=== PATIENT | male | born 1945 | race African-American/Black ===

== ENCOUNTER 2019-08-02 15:13 | Inpatient (IN) | payer MEDICARE, MEDICAID ==
[~2019-08-02] VITALS: Ht 185.4 cm; Wt 81.6 kg
[2019-08-02] MEDS ORDERED: MORPHINE SULFATE 4 MG/ML CPJ (NOT FOR IM USE) IV STA ×2 (15:37→18:18)
[2019-08-02] MEDS ORDERED: ONDANSETRON HCL 4MG/2ML INJ IV STA ×2 (15:37→18:18)
[2019-08-02 17:06] LABS: BASOPHILS % 0.6 % (0.0-2.0); EOSINOPHILS % 1.4 % (0.0-5.0); HEMATOCRIT. 41.6 % (42.0-52.0); HEMOGLOBIN. 13.9 g/dL (14.0-18.0); LYMPHOCYTES % 19.9 % (20.0-50.0); MEAN CORPUSCULAR HEMOGLOBIN 31.3 pg (28.0-32.0); MEAN CORPUSCULAR VOLUME 93.9 fL (80.0-94.0); MONOCYTES % 6.5 % (2.0-8.0); NEUTROPHILS % 71.6 % (40.0-76.0); RED BLOOD CELL COUNT 4.43 mill/uL (4.7-6.1); RED CELL DISTRIBUTION WIDTH 15.4 % (11.6-14.6)
[2019-08-02 17:09] LABS: CHLORIDE 107 mEq/L (98-107)
[2019-08-02 17:18] LABS: CREATINE KINASE 600 IU/L (39-308)
[2019-08-02 17:37] LABS: MEAN PLATELET VOLUME 9.7 fl (7.4-10.4); PLATELET 226 x1000/uL (130-400); PLATELET ESTIMATE NORMAL
[2019-08-02] MEDS ORDERED: MORPHINE SULFATE 4 MG/ML CPJ (NOT FOR IM USE) IV ONE (19:45)
[2019-08-02] MEDS ORDERED: MAGNESIUM/ALUMINUM HYDROXIDE/SIMETHICONE 30ML UDC PO PRN (20:45)
[2019-08-02] MEDS ORDERED: IPRATROPIUM/ALBUTEROL 0.5-3(2.5)MG/3ML NEB HHN PRN (20:45)
[2019-08-02] MEDS ORDERED: HYDRALAZINE 20MG/ML VIAL IV PRN (20:45)
[2019-08-02] MEDS ORDERED: ZOLPIDEM TARTRATE 5MG TABLET PO PRN (20:45)
[2019-08-02] MEDS ORDERED: CLONIDINE 0.1MG TABLET PO PRN (20:45)
[2019-08-02] MEDS ORDERED: ACETAMINOPHEN 325MG TABLET PO PRN ×2 (20:45)
[2019-08-02] MEDS ORDERED: HYDROMORPHONE HCL/PF 2MG/ML CPJ IV PRN (20:45)
[2019-08-02] MEDS ORDERED: ONDANSETRON HCL 4MG/2ML INJ IV PRN (20:45)
[2019-08-02] MEDS ORDERED: DIPHENHYDRAMINE 50MG/ML VIAL IV PRN (20:45)
[2019-08-02] MEDS ORDERED: GUAIFENESIN 200MG/10ML SUGAR FREE UDC PO PRN (20:45)
[2019-08-02 23:55] VITALS: BP 179/88
[2019-08-03] MEDS: HYDROMORPHONE HCL/PF 2MG/ML CPJ IV PRN ×6 (00:41→22:33)
[2019-08-03] MEDS ORDERED: DEXTROSE 50% WATER 50ML SYRINGE IV PRN (01:30)
[2019-08-03] MEDS: SODIUM CHLORIDE 0.9% 1,000 ML IV SCH ×3 (02:47→15:13)
[2019-08-03 04:00] VITALS: BP 149/71
[2019-08-03] MEDS ORDERED: TAMS-11 MT (05:55)
[2019-08-03] MEDS ORDERED: TRAZ-251 MT (05:55)
[2019-08-03] MEDS: SODIUM CHLORIDE 0.9% INJ 3ML FLUSH IVF SCH ×3 (06:00→21:02)
[2019-08-03 06:24] LABS: BASOPHILS % 0.9 % (0.0-2.0); EOSINOPHILS % 1.6 % (0.0-5.0); HEMATOCRIT. 36.9 % (42.0-52.0); HEMOGLOBIN. 12.4 g/dL (14.0-18.0); LYMPHOCYTES % 24.9 % (20.0-50.0); MEAN CORPUSCULAR HEMOGLOBIN 31.6 pg (28.0-32.0); MEAN CORPUSCULAR VOLUME 93.8 fL (80.0-94.0); MEAN PLATELET VOLUME 9.3 fl (7.4-10.4); MONOCYTES % 12.1 % (2.0-8.0); NEUTROPHILS % 60.5 % (40.0-76.0); PLATELET 233 x1000/uL (130-400); RED BLOOD CELL COUNT 3.93 mill/uL (4.7-6.1); RED CELL DISTRIBUTION WIDTH 15.2 % (11.6-14.6)
[2019-08-03 06:26] LABS: CHLORIDE 104 mEq/L (98-107)
[2019-08-03] MEDS: BLOOD SUGAR DIAGNOSTIC STRIP TEST SCH ×4 (06:38→21:00)
[2019-08-03] MEDS: METHOCARBAMOL 750MG TABLET PO SCH ×3 (06:39→21:01)
[2019-08-03 06:48] LABS: PHOSPHORUS 3.6 mg/dL (2.5-4.9)
[2019-08-03 07:02] LABS: CREATINE KINASE 1029 IU/L (39-308)
[2019-08-03] MEDS: INSULIN LISPRO 100 UNITS/ML SUBCUT SCH ×4 (07:25→21:00)
[2019-08-03 08:00] VITALS: BP 129/68
[2019-08-03] MEDS: ASPIRIN 81MG EC TABLET PO SCH (08:25)
[2019-08-03] MEDS: METFORMIN HCL 500MG TABLET PO SCH ×2 (08:25→17:40)
[2019-08-03] MEDS: DOCUSATE SODIUM 250MG CAPSULE PO SCH ×2 (08:25→17:39)
[2019-08-03] MEDS: TAMSULOSIN HCL 0.4MG SR CAPSULE PO SCH (08:26)
[2019-08-03] MEDS: LISINOPRIL 20MG TABLET PO SCH (08:26)
[2019-08-03] MEDS: FAMOTIDINE 20MG TABLET PO SCH ×2 (08:31→21:01)
[2019-08-03] MEDS: HYDROCODONE/ACETAMINOPHEN 10/325MG TABLET PO PRN ×2 (08:32→16:04)
[2019-08-03 12:00] VITALS: BP 130/60
[2019-08-03 16:00] VITALS: BP 133/65
[2019-08-03] MEDS ORDERED: MAGNESIUM 4 G PREMIX 100 ML IV NR (16:00)
[2019-08-03 20:00] VITALS: BP 170/83
[2019-08-03] MEDS: ATORVASTATIN CALCIUM 40MG TABLET PO SCH (21:01)
[2019-08-04] VITALS (7 sets, daily range): BP systolic 126–162; BP diastolic 75–95
[2019-08-04] MEDS: HYDROMORPHONE HCL/PF 2MG/ML CPJ IV PRN ×6 (02:34→22:38)
[2019-08-04] MEDS: SODIUM CHLORIDE 0.9% INJ 3ML FLUSH IVF SCH ×3 (06:00→20:42)
[2019-08-04] MEDS: METHOCARBAMOL 750MG TABLET PO SCH ×3 (06:33→20:47)
[2019-08-04] MEDS: SODIUM CHLORIDE 0.9% 1,000 ML IV SCH (06:33)
[2019-08-04] MEDS: BLOOD SUGAR DIAGNOSTIC STRIP TEST SCH ×4 (06:36→20:41)
[2019-08-04 06:48] LABS: CHLORIDE 102 mEq/L (98-107)
[2019-08-04 07:03] LABS: CREATINE KINASE 717 IU/L (39-308)
[2019-08-04 07:04] LABS: BASOPHILS % 0.4 % (0.0-2.0); HEMATOCRIT. 36.8 % (42.0-52.0); HEMOGLOBIN. 12.5 g/dL (14.0-18.0); LYMPHOCYTES % 11.9 % (20.0-50.0); MEAN CORPUSCULAR VOLUME 93.9 fL (80.0-94.0); MEAN PLATELET VOLUME 9.2 fl (7.4-10.4); MONOCYTES % 13.4 % (2.0-8.0); NEUTROPHILS % 73.3 % (40.0-76.0); PLATELET 282 x1000/uL (130-400); RED BLOOD CELL COUNT 3.92 mill/uL (4.7-6.1); RED CELL DISTRIBUTION WIDTH 15.1 % (11.6-14.6)
[2019-08-04 07:07] LABS: PHOSPHORUS 3.3 mg/dL (2.5-4.9)
[2019-08-04] MEDS: INSULIN LISPRO 100 UNITS/ML SUBCUT SCH ×4 (07:50→20:40)
[2019-08-04] MEDS: FAMOTIDINE 20MG TABLET PO SCH ×2 (08:22→20:40)
[2019-08-04] MEDS: DOCUSATE SODIUM 250MG CAPSULE PO SCH ×2 (08:22→17:04)
[2019-08-04] MEDS: ASPIRIN 81MG EC TABLET PO SCH (08:22)
[2019-08-04] MEDS: METFORMIN HCL 500MG TABLET PO SCH ×2 (08:23→17:55)
[2019-08-04] MEDS: LISINOPRIL 20MG TABLET PO SCH (08:23)
[2019-08-04] MEDS: TAMSULOSIN HCL 0.4MG SR CAPSULE PO SCH (08:23)
[2019-08-04] MEDS ORDERED: LISINOPRIL 20MG TABLET PO SCH ×2 (15:45→17:00)
[2019-08-04] MEDS: ATORVASTATIN CALCIUM 40MG TABLET PO SCH (20:39)
[2019-08-04] MEDS ORDERED: METOPROLOL TARTRATE 50MG TABLET PO SCH (21:00)
== END 2019-08-04 23:00 | DRG 565 ==
LOC: ER 15:13 → 6WST 20:02 → ENRESERV 22:23
PROVIDERS: ADMIT Internal Medicine; ATTEND Internal Medicine
PROC: 2W38X1Z Immobilization of Right Upper Extremity using Splint (ICD-10-PCS; principal; 2019-08-02)
DX: S22.20XA Unspecified fracture of sternum, initial encounter for closed fracture (principal); E46 Unspecified protein-calorie malnutrition; M62.82 Rhabdomyolysis; D64.9 Anemia, unspecified; E11.9 Type 2 diabetes mellitus without complications; E78.00 Pure hypercholesterolemia, unspecified; E83.42 Hypomagnesemia; F32.9 Major depressive disorder, single episode, unspecified; M47.816 Spondylosis without myelopathy or radiculopathy, lumbar region; M25.78 Osteophyte, vertebrae; N40.0 Benign prostatic hyperplasia without lower urinary tract symptoms; N28.1 Cyst of kidney, acquired; N20.0 Calculus of kidney; I10 Essential (primary) hypertension; M48.061 Spinal stenosis, lumbar region without neurogenic claudication; M48.02 Spinal stenosis, cervical region; S62.602A Fracture of unspecified phalanx of right middle finger, initial encounter for closed fracture; S62.606A Fracture of unspecified phalanx of right little finger, initial encounter for closed fracture; M47.812 Spondylosis without myelopathy or radiculopathy, cervical region; Z83.3 Family history of diabetes mellitus; Z68.23 Body mass index [BMI] 23.0-23.9, adult; Z79.899 Other long term (current) drug therapy; V43.52XA Car driver injured in collision with other type car in traffic accident, initial encounter; Y93.89 Activity, other specified; Y92.488 Other paved roadways as the place of occurrence of the external cause; Y99.8 Other external cause status; Z79.82 Long term (current) use of aspirin
CPT/HCPCS: 36415; 71045; 71250; 72128; 72131; 73140; 73560; 80048; 80053; 82550; 82962; 83036; 83735; 84100; 84484; 85025; 93005; 93306; 96374; 97162; 97166; 97530; 99285; J1170; J2270; J2405; J3475

== ENCOUNTER 2019-08-04 23:04 | Inpatient (IN) | payer MEDICARE, MEDICAID ==
[~2019-08-04] VITALS: Ht 188 cm; Wt 79.4 kg
[~2019-08-04 23:04] MED LIST: TAMS-11 MT; TRAZ-251 MT
[2019-08-04 23:10] VITALS: BP 152/85
[2019-08-05] MEDS ORDERED: IPRATROPIUM/ALBUTEROL 0.5-3(2.5)MG/3ML NEB HHN PRN (00:15)
[2019-08-05] MEDS ORDERED: ONDANSETRON HCL 4MG/2ML INJ IV PRN (00:15)
[2019-08-05] MEDS ORDERED: MAGNESIUM/ALUMINUM HYDROXIDE/SIMETHICONE 30ML UDC PO PRN (00:15)
[2019-08-05] MEDS ORDERED: DIPHENHYDRAMINE 50MG/ML VIAL IV PRN (00:15)
[2019-08-05] MEDS ORDERED: ACETAMINOPHEN 325MG TABLET PO PRN ×2 (00:15)
[2019-08-05] MEDS ORDERED: GUAIFENESIN 200MG/10ML SUGAR FREE UDC PO PRN (00:15)
[2019-08-05] MEDS ORDERED: DEXTROSE 50% WATER 50ML SYRINGE IV PRN (00:15)
[2019-08-05] MEDS ORDERED: HYDROMORPHONE HCL/PF 2MG/ML CPJ IV PRN (01:15)
[2019-08-05] MEDS: HYDROCODONE/ACETAMINOPHEN 10/325MG TABLET PO PRN ×2 (01:25→17:19)
[2019-08-05] MEDS: ZOLPIDEM TARTRATE 5MG TABLET PO PRN (02:33)
[2019-08-05] MEDS ORDERED: METHOCARBAMOL 750MG TABLET PO SCH (06:00)
[2019-08-05] MEDS: SODIUM CHLORIDE 0.9% INJ 3ML FLUSH IVF SCH ×3 (06:25→21:50)
[2019-08-05] MEDS: INSULIN LISPRO 100 UNITS/ML SUBCUT SCH ×4 (06:30→21:00)
[2019-08-05] MEDS: BLOOD SUGAR DIAGNOSTIC STRIP TEST SCH ×4 (06:30→21:48)
[2019-08-05 06:41] LABS: BASOPHILS % 1.2 % (0.0-2.0); EOSINOPHILS % 0.9 % (0.0-5.0); HEMATOCRIT. 38.3 % (42.0-52.0); HEMOGLOBIN. 12.8 g/dL (14.0-18.0); MEAN CORPUSCULAR HEMOGLOBIN 31.5 pg (28.0-32.0); MEAN CORPUSCULAR VOLUME 94.1 fL (80.0-94.0); MEAN PLATELET VOLUME 9.8 fl (7.4-10.4); MONOCYTES % 14.3 % (2.0-8.0); NEUTROPHILS % 67.6 % (40.0-76.0); PLATELET 206 x1000/uL (130-400); RED BLOOD CELL COUNT 4.07 mill/uL (4.7-6.1)
[2019-08-05 06:54] LABS: CHLORIDE 103 mEq/L (98-107)
[2019-08-05] MEDS: HYDROMORPHONE HCL 2MG TABLET PO PRN ×3 (07:47→22:17)
[2019-08-05] MEDS: CLONIDINE 0.1MG TABLET PO PRN ×2 (07:55→17:19)
[2019-08-05 08:00] VITALS: BP 199/97
[2019-08-05] MEDS ORDERED: NA PHOS,M-B/NA PHOS,DI-BA ENEMA 118ML PR PRN (09:00)
[2019-08-05] MEDS ORDERED: BISACODYL 5MG TABLET PO PRN (09:00)
[2019-08-05] MEDS: DOCUSATE SODIUM 250MG CAPSULE PO SCH ×2 (09:34→17:10)
[2019-08-05] MEDS: ASPIRIN 81MG EC TABLET PO SCH (09:35)
[2019-08-05] MEDS: FAMOTIDINE 20MG TABLET PO SCH ×2 (09:35→21:48)
[2019-08-05] MEDS: METOPROLOL TARTRATE 50MG TABLET PO SCH ×2 (09:35→21:47)
[2019-08-05] MEDS: TAMSULOSIN HCL 0.4MG SR CAPSULE PO SCH (09:35)
[2019-08-05] MEDS: METFORMIN HCL 500MG TABLET PO SCH ×2 (09:35→17:10)
[2019-08-05] MEDS: LISINOPRIL 20MG TABLET PO SCH (09:36)
[2019-08-05] MEDS ORDERED: LACTULOSE 20G/30ML UDC PO SCH (12:00)
[2019-08-05 20:00] VITALS: BP 143/75
[2019-08-05] MEDS: ATORVASTATIN CALCIUM 40MG TABLET PO SCH (21:47)
[2019-08-05 22:15] VITALS: BP 140/70
[2019-08-06] MEDS: ZOLPIDEM TARTRATE 5MG TABLET PO PRN (00:18)
[2019-08-06 03:15] VITALS: BP 145/80
[2019-08-06] MEDS: SODIUM CHLORIDE 0.9% INJ 3ML FLUSH IVF SCH ×3 (06:15→22:03)
[2019-08-06] MEDS: BLOOD SUGAR DIAGNOSTIC STRIP TEST SCH ×4 (06:16→21:30)
[2019-08-06] MEDS: HYDROMORPHONE HCL 2MG TABLET PO PRN (07:59)
[2019-08-06] MEDS: ASPIRIN 81MG EC TABLET PO SCH (08:00)
[2019-08-06] MEDS: FAMOTIDINE 20MG TABLET PO SCH ×2 (08:00→21:30)
[2019-08-06] MEDS: METFORMIN HCL 500MG TABLET PO SCH ×2 (08:01→16:43)
[2019-08-06] MEDS: TAMSULOSIN HCL 0.4MG SR CAPSULE PO SCH (08:01)
[2019-08-06] MEDS: LISINOPRIL 20MG TABLET PO SCH (08:01)
[2019-08-06] MEDS: METOPROLOL TARTRATE 50MG TABLET PO SCH ×2 (08:01→21:30)
[2019-08-06] MEDS: DOCUSATE SODIUM 250MG CAPSULE PO SCH ×2 (08:02→16:43)
[2019-08-06] MEDS: INSULIN LISPRO 100 UNITS/ML SUBCUT SCH ×4 (08:07→21:30)
[2019-08-06 08:22] VITALS: BP 166/92
[2019-08-06] MEDS ORDERED: OXYCODONE HCL 5MG TABLET PO PRN (09:00)
[2019-08-06] MEDS ORDERED: NALOXONE HCL 1 MG/ML 2ML VIAL IV PRN (10:00)
[2019-08-06] MEDS: HYDROCODONE/ACETAMINOPHEN 10/325MG TABLET PO PRN ×2 (10:17→18:05)
[2019-08-06] MEDS: LIDOCAINE 5% PATCH TOP SCH (10:24)
[2019-08-06] MEDS: HYDROMORPHONE HCL/PF 2MG/ML CPJ IV PRN ×2 (12:37→19:39)
[2019-08-06] MEDS: OXYCODONE HCL 5MG TABLET PO SCH ×2 (14:28→23:14)
[2019-08-06 18:20] LABS: CLARITY URINE CLEAR (CLEAR); COLOR URINE DARK YELLOW (YELLOW); KETONES URINE TRACE (NEGATIVE); LEUKOCYTE ESTERASE URINE NEGATIVE (NEGATIVE); NITRITE URINE NEGATIVE (NEGATIVE); OCCULT BLOOD URINE NEGATIVE (NEGATIVE); PROTEIN URINE TRACE (NEGATIVE); SPECIFIC GRAVITY URINE 1.025 (1.005-1.030)
[2019-08-06 20:00] VITALS: BP 170/90
[2019-08-06] MEDS: ATORVASTATIN CALCIUM 40MG TABLET PO SCH (21:30)
[2019-08-07] MEDS: HYDROMORPHONE HCL/PF 2MG/ML CPJ IV PRN ×4 (01:18→19:46)
[2019-08-07] MEDS: CYCLOBENZAPRINE 10MG TABLET PO PRN (02:30)
[2019-08-07] MEDS: OXYCODONE HCL 5MG TABLET PO SCH ×3 (05:25→22:23)
[2019-08-07] MEDS: SODIUM CHLORIDE 0.9% INJ 3ML FLUSH IVF SCH ×3 (06:00→22:24)
[2019-08-07 06:49] LABS: BASOPHILS % 0.8 % (0.0-2.0); EOSINOPHILS % 1.7 % (0.0-5.0); HEMATOCRIT. 36.4 % (42.0-52.0); HEMOGLOBIN. 12.5 g/dL (14.0-18.0); LYMPHOCYTES % 12.6 % (20.0-50.0); MEAN CORPUSCULAR HEMOGLOBIN 31.9 pg (28.0-32.0); MEAN CORPUSCULAR VOLUME 92.8 fL (80.0-94.0); MEAN PLATELET VOLUME 9.4 fl (7.4-10.4); MONOCYTES % 14.5 % (2.0-8.0); NEUTROPHILS % 70.4 % (40.0-76.0); PLATELET 294 x1000/uL (130-400); RED BLOOD CELL COUNT 3.93 mill/uL (4.7-6.1); RED CELL DISTRIBUTION WIDTH 14.9 % (11.6-14.6)
[2019-08-07 07:02] LABS: CHLORIDE 100 mEq/L (98-107)
[2019-08-07] MEDS: BLOOD SUGAR DIAGNOSTIC STRIP TEST SCH ×4 (07:12→20:57)
[2019-08-07] MEDS: INSULIN LISPRO 100 UNITS/ML SUBCUT SCH ×4 (07:13→20:57)
[2019-08-07 07:14] LABS: PHOSPHORUS 3.3 mg/dL (2.5-4.9)
[2019-08-07 07:15] LABS: TOTAL IRON BINDING CAPACITY 265 ug/dL (250-450)
[2019-08-07 07:17] LABS: CREATINE KINASE 110 IU/L (39-308)
[2019-08-07 07:22] LABS: PROSTRATE SPECIFIC AG TOTAL 1.06 ng/mL (0.0-4.0)
[2019-08-07 07:56] LABS: FOLIC ACID (FOLATE) SERUM 19.4 ng/mL (>5.38)
[2019-08-07 08:07] VITALS: BP 161/80
[2019-08-07] MEDS: FAMOTIDINE 20MG TABLET PO SCH ×2 (08:41→20:39)
[2019-08-07] MEDS: ASPIRIN 81MG EC TABLET PO SCH (08:41)
[2019-08-07] MEDS: LIDOCAINE 5% PATCH TOP SCH (08:42)
[2019-08-07] MEDS: METFORMIN HCL 500MG TABLET PO SCH ×2 (08:42→16:08)
[2019-08-07] MEDS: DOCUSATE SODIUM 250MG CAPSULE PO SCH ×2 (08:42→16:08)
[2019-08-07] MEDS: LISINOPRIL 20MG TABLET PO SCH (08:42)
[2019-08-07] MEDS: TAMSULOSIN HCL 0.4MG SR CAPSULE PO SCH (08:42)
[2019-08-07] MEDS: METOPROLOL TARTRATE 50MG TABLET PO SCH ×2 (08:42→20:39)
[2019-08-07] MEDS ORDERED: LIDOCAINE 5% PATCH TOP SCH (09:00)
[2019-08-07] MEDS: HYDROCODONE/ACETAMINOPHEN 10/325MG TABLET PO PRN ×2 (10:32→16:08)
[2019-08-07] MEDS ORDERED: MAGNESIUM SULFATE 1GM/2ML VIAL IM ONE (12:30)
[2019-08-07] MEDS ORDERED: MAGNESIUM 2 G PREMIX 50 ML IV SCH (14:00)
[2019-08-07] MEDS ORDERED: MAGNESIUM HYDROXIDE 400MG/5ML 30ML UDC PO PRN (16:30)
[2019-08-07] MEDS ORDERED: BISACODYL 10MG SUPP PR PRN (16:30)
[2019-08-07 20:00] VITALS: BP 153/82
[2019-08-07] MEDS: CYANOCOBALAMIN 1000MCG/ML VIAL IM SCH (20:38)
[2019-08-07] MEDS: ATORVASTATIN CALCIUM 40MG TABLET PO SCH (20:39)
[2019-08-07] MEDS ORDERED: SENNOSIDES 8.6MG TABLET PO PRN (21:00)
[2019-08-08] MEDS: HYDROMORPHONE HCL/PF 2MG/ML CPJ IV PRN ×4 (01:57→23:09)
[2019-08-08] MEDS: OXYCODONE HCL 5MG TABLET PO SCH ×3 (05:29→22:11)
[2019-08-08] MEDS: SODIUM CHLORIDE 0.9% INJ 3ML FLUSH IVF SCH ×3 (05:39→22:11)
[2019-08-08] MEDS: INSULIN LISPRO 100 UNITS/ML SUBCUT SCH ×4 (05:40→20:36)
[2019-08-08] MEDS: BLOOD SUGAR DIAGNOSTIC STRIP TEST SCH ×4 (05:40→20:34)
[2019-08-08 08:14] VITALS: BP 173/92
[2019-08-08] MEDS: METFORMIN HCL 500MG TABLET PO SCH ×2 (08:37→16:36)
[2019-08-08] MEDS: MAGNESIUM OXIDE 400MG TABLET PO SCH ×2 (08:37→16:36)
[2019-08-08] MEDS: METOPROLOL TARTRATE 50MG TABLET PO SCH ×2 (08:37→20:34)
[2019-08-08] MEDS: DOCUSATE SODIUM 250MG CAPSULE PO SCH ×2 (08:37→16:35)
[2019-08-08] MEDS: LIDOCAINE 5% PATCH TOP SCH (08:37)
[2019-08-08] MEDS: FAMOTIDINE 20MG TABLET PO SCH ×2 (08:37→20:34)
[2019-08-08] MEDS: ASPIRIN 81MG EC TABLET PO SCH (08:37)
[2019-08-08] MEDS: TAMSULOSIN HCL 0.4MG SR CAPSULE PO SCH (08:38)
[2019-08-08] MEDS: CYANOCOBALAMIN 1000MCG/ML VIAL IM SCH (08:38)
[2019-08-08] MEDS: LISINOPRIL 20MG TABLET PO SCH (08:38)
[2019-08-08] MEDS: HYDROCODONE/ACETAMINOPHEN 10/325MG TABLET PO PRN ×2 (11:40→18:54)
[2019-08-08] MEDS ORDERED: LACTULOSE 20G/30ML UDC PO NR (18:30)
[2019-08-08 20:00] VITALS: BP 153/87
[2019-08-08] MEDS: ATORVASTATIN CALCIUM 40MG TABLET PO SCH (20:33)
[2019-08-09] MEDS: HYDROCODONE/ACETAMINOPHEN 10/325MG TABLET PO PRN ×2 (03:26→18:36)
[2019-08-09] MEDS: HYDROMORPHONE HCL/PF 2MG/ML CPJ IV PRN ×3 (05:23→20:18)
[2019-08-09] MEDS: OXYCODONE HCL 5MG TABLET PO SCH ×4 (06:00→22:24)
[2019-08-09] MEDS: BLOOD SUGAR DIAGNOSTIC STRIP TEST SCH ×4 (06:16→21:35)
[2019-08-09] MEDS: INSULIN LISPRO 100 UNITS/ML SUBCUT SCH ×4 (06:16→21:00)
[2019-08-09] MEDS: SODIUM CHLORIDE 0.9% INJ 3ML FLUSH IVF SCH ×3 (06:16→21:38)
[2019-08-09 06:25] LABS: BASOPHILS % 0.3 % (0.0-2.0); EOSINOPHILS % 1.2 % (0.0-5.0); HEMATOCRIT. 37.9 % (42.0-52.0); LYMPHOCYTES % 14.4 % (20.0-50.0); MEAN CORPUSCULAR HEMOGLOBIN 31.9 pg (28.0-32.0); MEAN CORPUSCULAR VOLUME 93.1 fL (80.0-94.0); MEAN PLATELET VOLUME 8.6 fl (7.4-10.4); MONOCYTES % 14.4 % (2.0-8.0); NEUTROPHILS % 69.7 % (40.0-76.0); PLATELET 362 x1000/uL (130-400); RED BLOOD CELL COUNT 4.07 mill/uL (4.7-6.1); RED CELL DISTRIBUTION WIDTH 14.9 % (11.6-14.6)
[2019-08-09 06:40] LABS: CHLORIDE 99 mEq/L (98-107)
[2019-08-09 08:00] VITALS: BP 145/83
[2019-08-09] MEDS: DOCUSATE SODIUM 250MG CAPSULE PO SCH ×2 (08:44→17:33)
[2019-08-09] MEDS: MAGNESIUM OXIDE 400MG TABLET PO SCH ×2 (08:44→17:34)
[2019-08-09] MEDS: METFORMIN HCL 500MG TABLET PO SCH ×2 (08:44→17:34)
[2019-08-09] MEDS: ASPIRIN 81MG EC TABLET PO SCH (08:44)
[2019-08-09] MEDS: TAMSULOSIN HCL 0.4MG SR CAPSULE PO SCH (08:47)
[2019-08-09] MEDS: FAMOTIDINE 20MG TABLET PO SCH ×2 (08:47→21:35)
[2019-08-09] MEDS: LISINOPRIL 20MG TABLET PO SCH (08:48)
[2019-08-09] MEDS: CYANOCOBALAMIN 1000MCG/ML VIAL IM SCH (08:48)
[2019-08-09] MEDS: METOPROLOL TARTRATE 50MG TABLET PO SCH ×2 (08:48→21:35)
[2019-08-09] MEDS: LIDOCAINE 5% PATCH TOP SCH ×2 (08:49→08:52)
[2019-08-09 11:39] VITALS: BP 150/90
[2019-08-09] MEDS ORDERED: LACTULOSE 20G/30ML UDC PO SCH (12:00)
[2019-08-09] MEDS ORDERED: ACETAMINOPHEN 325MG TABLET PO PRN (15:30)
[2019-08-09 20:00] VITALS: BP 136/77
[2019-08-09] MEDS: ATORVASTATIN CALCIUM 40MG TABLET PO SCH (21:35)
[2019-08-10] MEDS: CYCLOBENZAPRINE 10MG TABLET PO PRN (00:45)
[2019-08-10] MEDS: HYDROMORPHONE HCL/PF 2MG/ML CPJ IV PRN ×3 (02:20→17:13)
[2019-08-10] MEDS: OXYCODONE HCL 5MG TABLET PO SCH ×3 (05:43→21:01)
[2019-08-10] MEDS: SODIUM CHLORIDE 0.9% INJ 3ML FLUSH IVF SCH ×3 (05:50→21:00)
[2019-08-10] MEDS: BLOOD SUGAR DIAGNOSTIC STRIP TEST SCH ×4 (05:50→20:34)
[2019-08-10 08:17] VITALS: BP 128/67
[2019-08-10] MEDS: METFORMIN HCL 500MG TABLET PO SCH ×2 (08:23→17:11)
[2019-08-10] MEDS: ASPIRIN 81MG EC TABLET PO SCH (08:23)
[2019-08-10] MEDS: FAMOTIDINE 20MG TABLET PO SCH ×2 (08:23→20:34)
[2019-08-10] MEDS: DOCUSATE SODIUM 250MG CAPSULE PO SCH ×2 (08:23→17:11)
[2019-08-10] MEDS: METOPROLOL TARTRATE 50MG TABLET PO SCH ×2 (08:23→20:34)
[2019-08-10] MEDS: CYANOCOBALAMIN 1000MCG/ML VIAL IM SCH (08:24)
[2019-08-10] MEDS: LISINOPRIL 20MG TABLET PO SCH (08:24)
[2019-08-10] MEDS: TAMSULOSIN HCL 0.4MG SR CAPSULE PO SCH (08:24)
[2019-08-10] MEDS: INSULIN LISPRO 100 UNITS/ML SUBCUT SCH ×4 (08:46→21:10)
[2019-08-10] MEDS: LIDOCAINE 5% PATCH TOP SCH (08:47)
[2019-08-10 13:30] VITALS: BP 130/64
[2019-08-10 16:44] VITALS: BP 130/75
[2019-08-10 20:00] VITALS: BP 133/77
[2019-08-10] MEDS: IRON SUCROSE COMPLEX 100 MG in SODIUM CHLORIDE 0.9% 100 ML IV SCH (20:34)
[2019-08-10] MEDS: ATORVASTATIN CALCIUM 40MG TABLET PO SCH (20:34)
[2019-08-11] MEDS: HYDROMORPHONE HCL/PF 2MG/ML CPJ IV PRN ×3 (01:47→14:06)
[2019-08-11] MEDS: SODIUM CHLORIDE 0.9% INJ 3ML FLUSH IVF SCH ×3 (05:45→21:37)
[2019-08-11] MEDS: OXYCODONE HCL 5MG TABLET PO SCH ×3 (05:46→21:40)
[2019-08-11] MEDS: BLOOD SUGAR DIAGNOSTIC STRIP TEST SCH ×4 (05:46→21:38)
[2019-08-11] MEDS: INSULIN LISPRO 100 UNITS/ML SUBCUT SCH ×4 (05:56→21:00)
[2019-08-11 07:09] LABS: 25-HYDROXY VITAMIN D3 25 ng/mL (.)
[2019-08-11 08:00] VITALS: BP 140/79
[2019-08-11] MEDS: METFORMIN HCL 500MG TABLET PO SCH ×2 (08:20→16:38)
[2019-08-11] MEDS: DOCUSATE SODIUM 250MG CAPSULE PO SCH ×2 (08:21→16:38)
[2019-08-11] MEDS: ASPIRIN 81MG EC TABLET PO SCH (08:21)
[2019-08-11] MEDS: FAMOTIDINE 20MG TABLET PO SCH ×2 (08:21→21:38)
[2019-08-11] MEDS: METOPROLOL TARTRATE 50MG TABLET PO SCH ×2 (08:21→21:40)
[2019-08-11] MEDS: LIDOCAINE 5% PATCH TOP SCH (08:22)
[2019-08-11] MEDS: CYANOCOBALAMIN 1000MCG/ML VIAL IM SCH (08:22)
[2019-08-11] MEDS: LISINOPRIL 20MG TABLET PO SCH (08:22)
[2019-08-11] MEDS: TAMSULOSIN HCL 0.4MG SR CAPSULE PO SCH (08:22)
[2019-08-11] MEDS: HYDROCODONE/ACETAMINOPHEN 10/325MG TABLET PO PRN ×2 (11:53→19:24)
[2019-08-11] MEDS ORDERED: OXYCODONE HCL 5MG TABLET PO PRN (14:00)
[2019-08-11 20:00] VITALS: BP 124/70
[2019-08-11] MEDS: IRON SUCROSE COMPLEX 100 MG in SODIUM CHLORIDE 0.9% 100 ML IV SCH (21:37)
[2019-08-11] MEDS: ATORVASTATIN CALCIUM 40MG TABLET PO SCH (21:38)
[2019-08-11 22:00] VITALS: BP 113/67
[2019-08-12] VITALS: BP 114/69
[2019-08-12] MEDS: HYDROMORPHONE HCL/PF 2MG/ML CPJ IV PRN ×2 (00:34→08:28)
[2019-08-12] MEDS: OXYCODONE HCL 5MG TABLET PO SCH ×3 (05:48→22:08)
[2019-08-12] MEDS: SODIUM CHLORIDE 0.9% INJ 3ML FLUSH IVF SCH ×3 (05:56→22:09)
[2019-08-12] MEDS: BLOOD SUGAR DIAGNOSTIC STRIP TEST SCH ×4 (05:56→20:23)
[2019-08-12 06:44] LABS: BASOPHILS % 0.3 % (0.0-2.0); EOSINOPHILS % 3.6 % (0.0-5.0); HEMATOCRIT. 37.3 % (42.0-52.0); HEMOGLOBIN. 12.7 g/dL (14.0-18.0); LYMPHOCYTES % 20.5 % (20.0-50.0); MEAN CORPUSCULAR HEMOGLOBIN 31.8 pg (28.0-32.0); MEAN CORPUSCULAR VOLUME 93.6 fL (80.0-94.0); MEAN PLATELET VOLUME 8.1 fl (7.4-10.4); MONOCYTES % 11.8 % (2.0-8.0); NEUTROPHILS % 63.8 % (40.0-76.0); PLATELET 537 x1000/uL (130-400); RED BLOOD CELL COUNT 3.99 mill/uL (4.7-6.1); RED CELL DISTRIBUTION WIDTH 14.5 % (11.6-14.6)
[2019-08-12 07:21] LABS: CHLORIDE 102 mEq/L (98-107)
[2019-08-12 07:28] LABS: PHOSPHORUS 3.4 mg/dL (2.5-4.9)
[2019-08-12 07:30] VITALS: BP 135/70
[2019-08-12] MEDS: INSULIN LISPRO 100 UNITS/ML SUBCUT SCH ×4 (08:13→20:23)
[2019-08-12] MEDS: LIDOCAINE 5% PATCH TOP SCH (08:13)
[2019-08-12] MEDS: TAMSULOSIN HCL 0.4MG SR CAPSULE PO SCH (08:15)
[2019-08-12] MEDS: FAMOTIDINE 20MG TABLET PO SCH ×2 (08:15→20:21)
[2019-08-12] MEDS: METFORMIN HCL 500MG TABLET PO SCH ×2 (08:15→16:42)
[2019-08-12] MEDS: DOCUSATE SODIUM 250MG CAPSULE PO SCH ×2 (08:15→16:42)
[2019-08-12] MEDS: LISINOPRIL 20MG TABLET PO SCH (08:15)
[2019-08-12] MEDS: ASPIRIN 81MG EC TABLET PO SCH (08:15)
[2019-08-12] MEDS: CYANOCOBALAMIN 1000MCG/ML VIAL IM SCH (08:16)
[2019-08-12] MEDS: METOPROLOL TARTRATE 50MG TABLET PO SCH ×2 (08:16→20:21)
[2019-08-12] MEDS: HYDROCODONE/ACETAMINOPHEN 10/325MG TABLET PO PRN ×2 (12:28→19:11)
[2019-08-12] MEDS: HYDROMORPHONE HCL/PF 2MG/ML CPJ SUBCUT PRN (14:25)
[2019-08-12 20:00] VITALS: BP 122/77
[2019-08-12] MEDS: ATORVASTATIN CALCIUM 40MG TABLET PO SCH (20:20)
[2019-08-12] MEDS: IRON SUCROSE COMPLEX 100 MG in SODIUM CHLORIDE 0.9% 100 ML IV SCH (20:20)
[2019-08-13] MEDS: HYDROMORPHONE HCL/PF 2MG/ML CPJ SUBCUT PRN ×2 (02:57→16:48)
[2019-08-13] MEDS: OXYCODONE HCL 5MG TABLET PO SCH ×3 (06:04→21:33)
[2019-08-13] MEDS: INSULIN LISPRO 100 UNITS/ML SUBCUT SCH ×4 (06:08→20:48)
[2019-08-13] MEDS: BLOOD SUGAR DIAGNOSTIC STRIP TEST SCH ×4 (06:08→20:38)
[2019-08-13] MEDS: SODIUM CHLORIDE 0.9% INJ 3ML FLUSH IVF SCH ×3 (06:19→21:32)
[2019-08-13 08:00] VITALS: BP 122/72
[2019-08-13] MEDS: CYANOCOBALAMIN 1000MCG/ML VIAL IM SCH (08:35)
[2019-08-13] MEDS: METFORMIN HCL 500MG TABLET PO SCH ×2 (08:36→16:42)
[2019-08-13] MEDS: FAMOTIDINE 20MG TABLET PO SCH ×2 (08:36→20:37)
[2019-08-13] MEDS: TAMSULOSIN HCL 0.4MG SR CAPSULE PO SCH (08:36)
[2019-08-13] MEDS: ASPIRIN 81MG EC TABLET PO SCH (08:36)
[2019-08-13] MEDS: METOPROLOL TARTRATE 50MG TABLET PO SCH ×2 (08:36→20:38)
[2019-08-13] MEDS: DOCUSATE SODIUM 250MG CAPSULE PO SCH ×2 (08:36→16:42)
[2019-08-13] MEDS: LISINOPRIL 20MG TABLET PO SCH (08:36)
[2019-08-13] MEDS: LIDOCAINE 5% PATCH TOP SCH (08:43)
[2019-08-13] MEDS: HYDROCODONE/ACETAMINOPHEN 10/325MG TABLET PO PRN (12:36)
[2019-08-13 20:00] VITALS: BP 114/71
[2019-08-13] MEDS: IRON SUCROSE COMPLEX 100 MG in SODIUM CHLORIDE 0.9% 100 ML IV SCH (20:37)
[2019-08-13] MEDS: ATORVASTATIN CALCIUM 40MG TABLET PO SCH (20:37)
[2019-08-14] MEDS: HYDROMORPHONE HCL/PF 2MG/ML CPJ SUBCUT PRN ×2 (01:39→16:14)
[2019-08-14] MEDS: OXYCODONE HCL 5MG TABLET PO SCH ×3 (06:06→21:58)
[2019-08-14] MEDS: BLOOD SUGAR DIAGNOSTIC STRIP TEST SCH ×4 (06:06→21:00)
[2019-08-14] MEDS: SODIUM CHLORIDE 0.9% INJ 3ML FLUSH IVF SCH ×3 (06:06→22:00)
[2019-08-14] MEDS: INSULIN LISPRO 100 UNITS/ML SUBCUT SCH ×4 (06:16→22:59)
[2019-08-14 08:00] VITALS: BP 133/74
[2019-08-14] MEDS: METOPROLOL TARTRATE 50MG TABLET PO SCH ×2 (08:40→21:59)
[2019-08-14] MEDS: METFORMIN HCL 500MG TABLET PO SCH ×2 (08:40→16:46)
[2019-08-14] MEDS: ASPIRIN 81MG EC TABLET PO SCH (08:40)
[2019-08-14] MEDS: FAMOTIDINE 20MG TABLET PO SCH ×2 (08:40→21:59)
[2019-08-14] MEDS: TAMSULOSIN HCL 0.4MG SR CAPSULE PO SCH (08:41)
[2019-08-14] MEDS: DOCUSATE SODIUM 250MG CAPSULE PO SCH ×2 (08:41→16:46)
[2019-08-14] MEDS: LISINOPRIL 20MG TABLET PO SCH (08:41)
[2019-08-14] MEDS: HYDROCODONE/ACETAMINOPHEN 10/325MG TABLET PO PRN (08:42)
[2019-08-14] MEDS: LIDOCAINE 5% PATCH TOP SCH (08:44)
[2019-08-14] MEDS ORDERED: ACETAMINOPHEN 325MG TABLET PO PRN (11:15)
[2019-08-14] MEDS ORDERED: ONDANSETRON HCL 4MG/2ML INJ IV PRN (11:30)
[2019-08-14 12:58] VITALS: BP 122/71
[2019-08-14 20:00] VITALS: BP 124/70
[2019-08-14] MEDS: ATORVASTATIN CALCIUM 40MG TABLET PO SCH (21:59)
[2019-08-14] MEDS: IRON SUCROSE COMPLEX 100 MG in SODIUM CHLORIDE 0.9% 100 ML IV SCH (22:00)
[2019-08-15] MEDS: HYDROMORPHONE HCL/PF 2MG/ML CPJ SUBCUT PRN ×2 (00:03→06:21)
[2019-08-15] MEDS: OXYCODONE HCL 5MG TABLET PO SCH ×3 (05:04→21:25)
[2019-08-15] MEDS: SODIUM CHLORIDE 0.9% INJ 3ML FLUSH IVF SCH ×2 (05:23→13:23)
[2019-08-15] MEDS: BLOOD SUGAR DIAGNOSTIC STRIP TEST SCH ×4 (06:18→20:51)
[2019-08-15] MEDS: INSULIN LISPRO 100 UNITS/ML SUBCUT SCH ×4 (06:19→20:51)
[2019-08-15 06:39] LABS: BASOPHILS % 1.4 % (0.0-2.0); EOSINOPHILS % 4.1 % (0.0-5.0); HEMATOCRIT. 38.2 % (42.0-52.0); HEMOGLOBIN. 12.9 g/dL (14.0-18.0); LYMPHOCYTES % 25.4 % (20.0-50.0); MEAN CORPUSCULAR HEMOGLOBIN 31.4 pg (28.0-32.0); MEAN CORPUSCULAR VOLUME 92.8 fL (80.0-94.0); MEAN PLATELET VOLUME 7.8 fl (7.4-10.4); MONOCYTES % 11.5 % (2.0-8.0); NEUTROPHILS % 57.6 % (40.0-76.0); PLATELET 720 x1000/uL (130-400); RED BLOOD CELL COUNT 4.11 mill/uL (4.7-6.1); RED CELL DISTRIBUTION WIDTH 14.5 % (11.6-14.6)
[2019-08-15 07:15] LABS: CHLORIDE 101 mEq/L (98-107)
[2019-08-15 07:26] VITALS: BP 133/83
[2019-08-15] MEDS: ASPIRIN 81MG EC TABLET PO SCH (08:19)
[2019-08-15] MEDS: FAMOTIDINE 20MG TABLET PO SCH ×2 (08:19→20:44)
[2019-08-15] MEDS: METOPROLOL TARTRATE 50MG TABLET PO SCH ×2 (08:19→20:44)
[2019-08-15] MEDS: DOCUSATE SODIUM 250MG CAPSULE PO SCH ×2 (08:19→16:37)
[2019-08-15] MEDS: METFORMIN HCL 500MG TABLET PO SCH ×2 (08:19→16:37)
[2019-08-15] MEDS: LISINOPRIL 20MG TABLET PO SCH (08:19)
[2019-08-15] MEDS: TAMSULOSIN HCL 0.4MG SR CAPSULE PO SCH (08:19)
[2019-08-15] MEDS: LIDOCAINE 5% PATCH TOP SCH (08:20)
[2019-08-15] MEDS: HYDROCODONE/ACETAMINOPHEN 10/325MG TABLET PO PRN (18:14)
[2019-08-15 20:00] VITALS: BP 119/72
[2019-08-15] MEDS: ATORVASTATIN CALCIUM 40MG TABLET PO SCH (20:44)
[2019-08-16] MEDS: HYDROCODONE/ACETAMINOPHEN 10/325MG TABLET PO PRN ×2 (04:12→15:12)
[2019-08-16] MEDS: BLOOD SUGAR DIAGNOSTIC STRIP TEST SCH ×4 (05:48→21:59)
[2019-08-16] MEDS: INSULIN LISPRO 100 UNITS/ML SUBCUT SCH ×4 (06:13→21:00)
[2019-08-16] MEDS: OXYCODONE HCL 5MG TABLET PO SCH ×3 (06:38→21:58)
[2019-08-16 07:47] VITALS: BP 106/69
[2019-08-16] MEDS: LIDOCAINE 5% PATCH TOP SCH (08:10)
[2019-08-16] MEDS: DOCUSATE SODIUM 250MG CAPSULE PO SCH ×2 (08:39→16:22)
[2019-08-16] MEDS: FAMOTIDINE 20MG TABLET PO SCH ×2 (08:40→21:57)
[2019-08-16] MEDS: METFORMIN HCL 500MG TABLET PO SCH ×2 (08:40→16:21)
[2019-08-16] MEDS: METOPROLOL TARTRATE 50MG TABLET PO SCH ×2 (08:40→21:00)
[2019-08-16] MEDS: ASPIRIN 81MG EC TABLET PO SCH (08:40)
[2019-08-16] MEDS: TAMSULOSIN HCL 0.4MG SR CAPSULE PO SCH (08:41)
[2019-08-16] MEDS: LISINOPRIL 20MG TABLET PO SCH (08:41)
[2019-08-16 20:00] VITALS: BP 118/78
[2019-08-16] MEDS: ATORVASTATIN CALCIUM 40MG TABLET PO SCH (21:57)
[2019-08-17] MEDS: HYDROCODONE/ACETAMINOPHEN 10/325MG TABLET PO PRN ×2 (03:22→09:22)
[2019-08-17 05:37] LABS: CHLORIDE 100 mEq/L (98-107)
[2019-08-17] MEDS: OXYCODONE HCL 5MG TABLET PO SCH ×3 (06:00→21:30)
[2019-08-17] MEDS: BLOOD SUGAR DIAGNOSTIC STRIP TEST SCH ×4 (06:26→21:30)
[2019-08-17] MEDS: INSULIN LISPRO 100 UNITS/ML SUBCUT SCH ×4 (06:41→21:00)
[2019-08-17 07:51] VITALS: BP 115/73
[2019-08-17] MEDS: FAMOTIDINE 20MG TABLET PO SCH ×2 (08:19→21:24)
[2019-08-17] MEDS: ASPIRIN 81MG EC TABLET PO SCH (08:21)
[2019-08-17] MEDS: DOCUSATE SODIUM 250MG CAPSULE PO SCH ×2 (08:21→17:53)
[2019-08-17] MEDS: TAMSULOSIN HCL 0.4MG SR CAPSULE PO SCH (08:22)
[2019-08-17] MEDS: METOPROLOL TARTRATE 50MG TABLET PO SCH ×2 (08:22→21:00)
[2019-08-17] MEDS: LISINOPRIL 20MG TABLET PO SCH (08:22)
[2019-08-17] MEDS: METFORMIN HCL 500MG TABLET PO SCH ×2 (08:22→17:53)
[2019-08-17] MEDS: HYDROMORPHONE HCL/PF 2MG/ML CPJ SUBCUT PRN (08:24)
[2019-08-17] MEDS: LIDOCAINE 5% PATCH TOP SCH (08:24)
[2019-08-17 08:51] LABS: BASOPHILS % 1.3 % (0.0-2.0); EOSINOPHILS % 2.6 % (0.0-5.0); HEMATOCRIT. 39.3 % (42.0-52.0); HEMOGLOBIN. 13.5 g/dL (14.0-18.0); LYMPHOCYTES % 25.6 % (20.0-50.0); MEAN CORPUSCULAR VOLUME 92.8 fL (80.0-94.0); MEAN PLATELET VOLUME 8.2 fl (7.4-10.4); MONOCYTES % 8.9 % (2.0-8.0); NEUTROPHILS % 61.6 % (40.0-76.0); PLATELET 887 x1000/uL (130-400); RED BLOOD CELL COUNT 4.23 mill/uL (4.7-6.1); RED CELL DISTRIBUTION WIDTH 14.2 % (11.6-14.6)
[2019-08-17 20:00] VITALS: BP 101/63
[2019-08-17] MEDS: ATORVASTATIN CALCIUM 40MG TABLET PO SCH (21:24)
[2019-08-18] MEDS: OXYCODONE HCL 5MG TABLET PO SCH (05:34)
[2019-08-18] MEDS: BLOOD SUGAR DIAGNOSTIC STRIP TEST SCH ×2 (06:54→11:34)
[2019-08-18] MEDS: INSULIN LISPRO 100 UNITS/ML SUBCUT SCH ×2 (06:55→13:00)
[2019-08-18 07:57] VITALS: BP 113/64
[2019-08-18] MEDS: METOPROLOL TARTRATE 50MG TABLET PO SCH (09:00)
[2019-08-18] MEDS: LIDOCAINE 5% PATCH TOP SCH (09:00)
[2019-08-18] MEDS: LISINOPRIL 20MG TABLET PO SCH (09:00)
[2019-08-18] MEDS: DOCUSATE SODIUM 250MG CAPSULE PO SCH (09:03)
[2019-08-18] MEDS: FAMOTIDINE 20MG TABLET PO SCH (09:03)
[2019-08-18] MEDS: ASPIRIN 81MG EC TABLET PO SCH (09:04)
[2019-08-18] MEDS: METFORMIN HCL 500MG TABLET PO SCH (09:04)
[2019-08-18] MEDS: TAMSULOSIN HCL 0.4MG SR CAPSULE PO SCH (09:04)
[2019-08-18 11:56] VITALS: BP 113/64
[2019-08-20] MEDS ORDERED: CYANOCOBALAMIN 1000MCG/ML VIAL IM SCH (09:00)
== END 2019-08-18 12:50 | disposition home health service (06) | DRG 565 ==
PROVIDERS: ADMIT Physical Medicine & Rehabilitation Spinal Cord Injury Medicine; ATTEND Internal Medicine
DX: S22.20XA Unspecified fracture of sternum, initial encounter for closed fracture (principal); S26.91XA Contusion of heart, unspecified with or without hemopericardium, initial encounter; E46 Unspecified protein-calorie malnutrition; M62.82 Rhabdomyolysis; D64.9 Anemia, unspecified; E11.9 Type 2 diabetes mellitus without complications; I10 Essential (primary) hypertension; E78.00 Pure hypercholesterolemia, unspecified; E83.42 Hypomagnesemia; R20.0 Anesthesia of skin; R20.2 Paresthesia of skin; R79.89 Other specified abnormal findings of blood chemistry; S62.622A Displaced fracture of middle phalanx of right middle finger, initial encounter for closed fracture; F32.9 Major depressive disorder, single episode, unspecified; M25.78 Osteophyte, vertebrae; M47.816 Spondylosis without myelopathy or radiculopathy, lumbar region; S63.276A Dislocation of unspecified interphalangeal joint of right little finger, initial encounter; M48.061 Spinal stenosis, lumbar region without neurogenic claudication; N40.0 Benign prostatic hyperplasia without lower urinary tract symptoms; V89.2XXA Person injured in unspecified motor-vehicle accident, traffic, initial encounter; Z68.22 Body mass index [BMI] 22.0-22.9, adult; Z82.49 Family history of ischemic heart disease and other diseases of the circulatory system; Z83.3 Family history of diabetes mellitus; Z87.891 Personal history of nicotine dependence; Y93.89 Activity, other specified; Y99.8 Other external cause status; Y92.488 Other paved roadways as the place of occurrence of the external cause; Z79.899 Other long term (current) drug therapy; Z79.82 Long term (current) use of aspirin
CPT/HCPCS: 36415; 71046; 73130; 80048; 80053; 81003; 82306; 82550; 82607; 82728; 82746; 82962; 83540; 83550; 83735; 84100; 84153; 84443; 85025; 92523; 92610; 93970; 97110; 97112; 97116; 97129; 97130; 97162; 97167; 97530; 97535; J1170; J1815; J3420; J3475; J7050; L0172; G0103